=== PATIENT | male | born 1940 | race Caucasian/White ===

== ENCOUNTER 2020-09-13 20:09 | Inpatient (IN) | payer OTHER, SELFPAY ==
[~2020-09-13] VITALS: Ht 167.6 cm; Wt 62.7 kg
[2020-09-13 20:00] VITALS: BP_SYST 117
[~2020-09-13 20:09] MED LIST: ACET325T53 PO; ASCO500T20 PO; ASPI-1155 PO; FURO80TA3 PO; INSU100V11 SQ; LEVO500T89 PO; METO25TA3 PO; MULT-1117 PO; POTA8CAP20 PO; SSNOVOLOG SUBCUT; VALS80TA2 PO; VANC250V IV
[2020-09-13 22:57] VITALS: BP_SYST 117
[2020-09-14 00:42] VITALS: BP_SYST 120
[2020-09-14] MEDS: INSULIN REGULAR, HUMAN 100 UNITS/ML, 10 ML VIAL (humuLIN R) SUBCUT PRN ×2 (06:41→16:47)
[2020-09-14 06:52] LABS: BASOPHILS % (AUTO) 0.6 % (0.0-2.0); EOSINOPHILS # (AUTO) 0.1 K/uL (0.0-0.4); EOSINOPHILS % (AUTO) 1.6 % (0.0-4.0); HEMATOCRIT 32.1 % (36-54); HEMOGLOBIN 10.5 g/dL (14.0-18.0); LYMPHOCYTES # (AUTO) 0.9 K/uL (1.0-5.5); LYMPHOCYTES % (AUTO) 16.3 % (20.5-51.5); MEAN CORPUSCULAR HEMOGLOBIN 28 pg (27-31); MEAN CORPUSCULAR HGB CONC 33 % (32-36); MEAN CORPUSCULAR VOLUME 85 fL (79.0-98.0); MONOCYTES # (AUTO) 0.5 K/uL (0.0-1.0); MONOCYTES % (AUTO) 9.3 % (1.7-9.3); NEUTROPHILS # (AUTO) 3.9 K/uL (1.8-7.7); NEUTROPHILS % (AUTO) 72.2 % (40.0-70.0); PLATELET COUNT (AUTO) 199 K/uL (130-430); RED BLOOD CELL COUNT(AUTO) 3.77 MIL/uL (4.2-6.2); RED CELL DISTRIBUTION WIDTH 23.2 % (9.0-15.0); WHITE BLOOD COUNT (AUTO) 5.3 K/uL (4.8-10.8)
[2020-09-14 07:21] LABS: ALANINE AMINOTRANSFERASE 31 U/L (12-78); ALBUMIN 2.3 g/dL (3.4-4.8); ANION GAP 10 (5-15); ASPARTATE AMINOTRANSFERASE 49 U/L (10-37); CALCIUM 8.3 mg/dL (8.4-11.0); CHLORIDE 103 mmol/L (98-107); CREATININE 1.31 mg/dL (0.55-1.30); GLUCOSE 248 mg/dL (70-99); POTASSIUM 4.6 mmol/L (3.5-5.1); SODIUM SERUM 138 mmol/L (136-145); THYROID STIMULATING HORMONE 5.38 uIu/mL (0.36-3.74); TOTAL BILIRUBIN 1.4 mg/dL (0.0-1.0); UREA NITROGEN, BLOOD 38 mg/dL (8-21)
[2020-09-14 07:22] LABS: INR 1.2 (0.80-1.20); PROTHROMBIN TIME 12.6 SECS (9.5-12.5)
[2020-09-14 07:55] VITALS: BP_SYST 100
[2020-09-14] MEDS ORDERED: ACETAMINOPHEN 650 MG/20.3 ML UDC PO PRN (08:00)
[2020-09-14] MEDS: HYDROcodone/ACETAMIN 5-325 MG TAB (NORCO/ VICODIN) PO PRN (08:15)
[2020-09-14 08:34] LABS: CHOLESTEROL 118 mg/dL (<200); HDL CHOLESTEROL 37 mg/dL (>45); LDL CHOLESTEROL 56 mg/dL (<100); TRIGLYCERIDES 59 mg/dL (30-150)
[2020-09-14 11:40] VITALS: BP_SYST 103
[2020-09-14] MEDS ORDERED: cefTRIAXone 1 GM in D5W 50 ML IV SCH (14:00)
[2020-09-14] MEDS: cefTRIAXone 1 GM in D5W 50 ML IV SCH (14:28)
[2020-09-14] MEDS ORDERED: BALSAM PERU/CASTOR OIL 60 GM OINT...G. TP ONE (14:30)
[2020-09-14 15:29] VITALS: BP_SYST 109
[2020-09-14 20:00] VITALS: BP_SYST 100
[2020-09-14] MEDS: CLOTRIMAZOLE/BETAMETHASONE 45 GM TOPICAL CREAM TP SCH (21:54)
[2020-09-15 00:06] VITALS: BP_SYST 104
[2020-09-15 07:16] LABS: BASOPHILS # (AUTO) 0.1 K/uL (0.0-0.2); BASOPHILS % (AUTO) 0.9 % (0.0-2.0); EOSINOPHILS # (AUTO) 0.1 K/uL (0.0-0.4); HEMATOCRIT 34.5 % (36-54); LYMPHOCYTES # (AUTO) 1.4 K/uL (1.0-5.5); LYMPHOCYTES % (AUTO) 24.2 % (20.5-51.5); MEAN CORPUSCULAR HEMOGLOBIN 27 pg (27-31); MEAN CORPUSCULAR HGB CONC 32 % (32-36); MEAN CORPUSCULAR VOLUME 86 fL (79.0-98.0); MONOCYTES # (AUTO) 0.6 K/uL (0.0-1.0); MONOCYTES % (AUTO) 10.6 % (1.7-9.3); NEUTROPHILS # (AUTO) 3.7 K/uL (1.8-7.7); NEUTROPHILS % (AUTO) 63.3 % (40.0-70.0); PLATELET COUNT (AUTO) 206 K/uL (130-430); RED CELL DISTRIBUTION WIDTH 23.3 % (9.0-15.0); WHITE BLOOD COUNT (AUTO) 5.8 K/uL (4.8-10.8)
[2020-09-15 07:37] VITALS: BP_SYST 115
[2020-09-15 07:45] LABS: ANION GAP 12 (5-15); CALCIUM 8.7 mg/dL (8.4-11.0); CHLORIDE 103 mmol/L (98-107); CREATININE 1.44 mg/dL (0.55-1.30); GLUCOSE 119 mg/dL (70-99); POTASSIUM 5.2 mmol/L (3.5-5.1); SODIUM SERUM 138 mmol/L (136-145); UREA NITROGEN, BLOOD 41 mg/dL (8-21)
[2020-09-15] MEDS: METOPROLOL SUCCINATE 25 MG TAB.SR.24H (TOPROL XL) PO SCH (09:00)
[2020-09-15] MEDS: LOSARTAN POTASSIUM 25 MG TABLET PO SCH (09:00)
[2020-09-15 09:05] VITALS: BP_SYST 106
[2020-09-15] MEDS: ASPIRIN 81 MG TAB.CHEW PO SCH (09:06)
[2020-09-15] MEDS: ASCORBIC ACID 500 MG TABLET PO SCH (09:07)
[2020-09-15] MEDS: MULTIVITAMINS TAB 1 TABLET PO SCH (09:07)
[2020-09-15] MEDS: HYDROcodone/ACETAMIN 5-325 MG TAB (NORCO/ VICODIN) PO PRN (09:07)
[2020-09-15] MEDS: CLOTRIMAZOLE/BETAMETHASONE 45 GM TOPICAL CREAM TP SCH ×2 (09:08→20:34)
[2020-09-15] MEDS: BALSAM PERU/CASTOR OIL 60 GM OINT...G. TP SCH (09:17)
[2020-09-15] MEDS: FUROSEMIDE 80 MG TABLET PO SCH (11:13)
[2020-09-15] MEDS: INSULIN REGULAR, HUMAN 100 UNITS/ML, 10 ML VIAL (humuLIN R) SUBCUT PRN ×2 (11:17→20:37)
[2020-09-15 11:42] VITALS: BP_SYST 119
[2020-09-15] MEDS: cefTRIAXone 1 GM in D5W 50 ML IV SCH (13:22)
[2020-09-15] MEDS ORDERED: ACETAMINOPHEN 325 MG TABLET PO SCH (13:45)
[2020-09-15 15:52] VITALS: BP_SYST 100
[2020-09-15] MEDS: MUPIROCIN 2% TOPICAL OINTMENT 22 GM NS SCH (20:34)
[2020-09-16 00:21] VITALS: BP_SYST 128
[2020-09-16] MEDS: INSULIN REGULAR, HUMAN 100 UNITS/ML, 10 ML VIAL (humuLIN R) SUBCUT PRN ×3 (06:28→21:16)
[2020-09-16] MEDS ORDERED: levoFLOXacin 500 MG TABLET PO SCH (09:00)
[2020-09-16 09:08] VITALS: BP_SYST 120
[2020-09-16] MEDS: FUROSEMIDE 80 MG TABLET PO SCH (09:14)
[2020-09-16] MEDS: LOSARTAN POTASSIUM 25 MG TABLET PO SCH (09:14)
[2020-09-16] MEDS: ASPIRIN 81 MG TAB.CHEW PO SCH (09:14)
[2020-09-16] MEDS: METOPROLOL SUCCINATE 25 MG TAB.SR.24H (TOPROL XL) PO SCH (09:15)
[2020-09-16] MEDS: ASCORBIC ACID 500 MG TABLET PO SCH (09:15)
[2020-09-16] MEDS: MUPIROCIN 2% TOPICAL OINTMENT 22 GM NS SCH ×2 (09:16→21:13)
[2020-09-16] MEDS: MULTIVITAMINS TAB 1 TABLET PO SCH (09:16)
[2020-09-16] MEDS: BALSAM PERU/CASTOR OIL 60 GM OINT...G. TP SCH (09:17)
[2020-09-16] MEDS: CLOTRIMAZOLE/BETAMETHASONE 45 GM TOPICAL CREAM TP SCH ×2 (09:17→21:13)
[2020-09-16 12:00] VITALS: BP_SYST 124
[2020-09-16] MEDS: cefTRIAXone 1 GM in D5W 50 ML IV SCH (13:32)
[2020-09-16 16:27] VITALS: BP_SYST 121
[2020-09-16 20:45] VITALS: BP_SYST 122
[2020-09-17 00:48] VITALS: BP_SYST 120
[2020-09-17] MEDS: HYDROcodone/ACETAMIN 10-325 MG TAB PO PRN (06:16)
[2020-09-17 08:06] VITALS: BP_SYST 118
[2020-09-17] MEDS: ASPIRIN 81 MG TAB.CHEW PO SCH (08:20)
[2020-09-17] MEDS: MULTIVITAMINS TAB 1 TABLET PO SCH (08:21)
[2020-09-17] MEDS: ASCORBIC ACID 500 MG TABLET PO SCH (08:21)
[2020-09-17] MEDS: METOPROLOL SUCCINATE 25 MG TAB.SR.24H (TOPROL XL) PO SCH (08:21)
[2020-09-17] MEDS: FUROSEMIDE 80 MG TABLET PO SCH (08:21)
[2020-09-17] MEDS: LOSARTAN POTASSIUM 25 MG TABLET PO SCH (08:22)
[2020-09-17] MEDS: CLOTRIMAZOLE/BETAMETHASONE 45 GM TOPICAL CREAM TP SCH ×2 (08:24→20:04)
[2020-09-17] MEDS: MUPIROCIN 2% TOPICAL OINTMENT 22 GM NS SCH ×2 (08:24→20:04)
[2020-09-17] MEDS: BALSAM PERU/CASTOR OIL 60 GM OINT...G. TP SCH (08:24)
[2020-09-17 11:34] VITALS: BP_SYST 107
[2020-09-17] MEDS: INSULIN REGULAR, HUMAN 100 UNITS/ML, 10 ML VIAL (humuLIN R) SUBCUT PRN ×3 (11:42→20:06)
[2020-09-17] MEDS: cefTRIAXone 1 GM in D5W 50 ML IV SCH (14:01)
[2020-09-17 19:00] VITALS: BP_SYST 112
[2020-09-17 20:00] VITALS: BP_SYST 112
[2020-09-18 02:41] VITALS: BP_SYST 116
[2020-09-18] MEDS: INSULIN REGULAR, HUMAN 100 UNITS/ML, 10 ML VIAL (humuLIN R) SUBCUT PRN ×4 (05:36→21:22)
[2020-09-18 08:00] VITALS: BP_SYST 132
[2020-09-18] MEDS ORDERED: MORPHINE 2 MG/ML INJ. SYRINGE IVP PRN (08:00)
[2020-09-18] MEDS ORDERED: MORPHINE 2 MG/ML INJ. SYRINGE ONE (08:08)
[2020-09-18] MEDS: MULTIVITAMINS TAB 1 TABLET PO SCH (09:56)
[2020-09-18] MEDS: ASCORBIC ACID 500 MG TABLET PO SCH (09:56)
[2020-09-18] MEDS: LOSARTAN POTASSIUM 25 MG TABLET PO SCH (09:57)
[2020-09-18] MEDS: FUROSEMIDE 80 MG TABLET PO SCH (09:57)
[2020-09-18] MEDS: ASPIRIN 81 MG TAB.CHEW PO SCH (09:57)
[2020-09-18] MEDS: METOPROLOL SUCCINATE 25 MG TAB.SR.24H (TOPROL XL) PO SCH (09:58)
[2020-09-18] MEDS: CLOTRIMAZOLE/BETAMETHASONE 45 GM TOPICAL CREAM TP SCH ×2 (09:58→21:19)
[2020-09-18] MEDS: BALSAM PERU/CASTOR OIL 60 GM OINT...G. TP SCH (09:59)
[2020-09-18] MEDS: MUPIROCIN 2% TOPICAL OINTMENT 22 GM NS SCH ×2 (10:10→21:20)
[2020-09-18 12:00] VITALS: BP_SYST 107
[2020-09-18] MEDS: cefTRIAXone 1 GM in D5W 50 ML IV SCH (14:07)
[2020-09-18 16:00] VITALS: BP_SYST 114
[2020-09-19] MEDS: HYDROcodone/ACETAMIN 10-325 MG TAB PO PRN (01:57)
[2020-09-19] MEDS: INSULIN REGULAR, HUMAN 100 UNITS/ML, 10 ML VIAL (humuLIN R) SUBCUT PRN ×2 (05:30→11:44)
[2020-09-19 06:41] LABS: BASOPHILS % (AUTO) 0.4 % (0.0-2.0); EOSINOPHILS # (AUTO) 0.1 K/uL (0.0-0.4); HEMATOCRIT 36.9 % (36-54); HEMOGLOBIN 11.8 g/dL (14.0-18.0); LYMPHOCYTES # (AUTO) 0.8 K/uL (1.0-5.5); LYMPHOCYTES % (AUTO) 15.1 % (20.5-51.5); MEAN CORPUSCULAR HEMOGLOBIN 28 pg (27-31); MEAN CORPUSCULAR HGB CONC 32 % (32-36); MEAN CORPUSCULAR VOLUME 86 fL (79.0-98.0); MONOCYTES # (AUTO) 0.5 K/uL (0.0-1.0); MONOCYTES % (AUTO) 9.2 % (1.7-9.3); NEUTROPHILS # (AUTO) 4.1 K/uL (1.8-7.7); NEUTROPHILS % (AUTO) 74.3 % (40.0-70.0); PLATELET COUNT (AUTO) 266 K/uL (130-430); RED BLOOD CELL COUNT(AUTO) 4.29 MIL/uL (4.2-6.2); RED CELL DISTRIBUTION WIDTH 23.4 % (9.0-15.0); WHITE BLOOD COUNT (AUTO) 5.5 K/uL (4.8-10.8)
[2020-09-19 07:52] LABS: ALANINE AMINOTRANSFERASE 21 U/L (12-78); ALBUMIN 2.5 g/dL (3.4-4.8); ANION GAP 8 (5-15); ASPARTATE AMINOTRANSFERASE 31 U/L (10-37); CALCIUM 8.7 mg/dL (8.4-11.0); CHLORIDE 99 mmol/L (98-107); CREATININE 1.29 mg/dL (0.55-1.30); GLUCOSE 274 mg/dL (70-99); POTASSIUM 5.3 mmol/L (3.5-5.1); SODIUM SERUM 135 mmol/L (136-145); TOTAL BILIRUBIN 1.2 mg/dL (0.0-1.0); UREA NITROGEN, BLOOD 45 mg/dL (8-21)
[2020-09-19 08:55] VITALS: BP_SYST 108
[2020-09-19] MEDS: BALSAM PERU/CASTOR OIL 60 GM OINT...G. TP SCH (09:01)
[2020-09-19] MEDS: CLOTRIMAZOLE/BETAMETHASONE 45 GM TOPICAL CREAM TP SCH (09:01)
[2020-09-19] MEDS: ASPIRIN 81 MG TAB.CHEW PO SCH (09:02)
[2020-09-19] MEDS: MUPIROCIN 2% TOPICAL OINTMENT 22 GM NS SCH (09:02)
[2020-09-19] MEDS: LOSARTAN POTASSIUM 25 MG TABLET PO SCH (09:02)
[2020-09-19] MEDS: FUROSEMIDE 80 MG TABLET PO SCH (09:04)
[2020-09-19] MEDS: MULTIVITAMINS TAB 1 TABLET PO SCH (09:04)
[2020-09-19] MEDS: ASCORBIC ACID 500 MG TABLET PO SCH (09:04)
[2020-09-19] MEDS: METOPROLOL SUCCINATE 25 MG TAB.SR.24H (TOPROL XL) PO SCH (09:04)
[2020-09-19 12:16] VITALS: BP_SYST 113
[2020-09-19] MEDS: cefTRIAXone 1 GM in D5W 50 ML IV SCH (14:00)
[2020-09-19 15:51] VITALS: BP_SYST 113
[2020-09-19 16:30] VITALS: BP_SYST 119
== END 2020-09-19 16:25 | DRG 299 ==
LOC: SMU 20:09
PROVIDERS: ADMIT Internal Medicine; ATTEND Internal Medicine
DX: E11.52 Type 2 diabetes mellitus with diabetic peripheral angiopathy with gangrene (principal); E43 Unspecified severe protein-calorie malnutrition; L03.116 Cellulitis of left lower limb; I96 Gangrene, not elsewhere classified; I42.0 Dilated cardiomyopathy; I13.0 Hypertensive heart and chronic kidney disease with heart failure and stage 1 through stage 4 chronic kidney disease, or unspecified chronic kidney disease; I50.40 Unspecified combined systolic (congestive) and diastolic (congestive) heart failure; L03.115 Cellulitis of right lower limb; N18.4 Chronic kidney disease, stage 4 (severe); E11.621 Type 2 diabetes mellitus with foot ulcer; L97.519 Non-pressure chronic ulcer of other part of right foot with unspecified severity; L97.529 Non-pressure chronic ulcer of other part of left foot with unspecified severity; I87.8 Other specified disorders of veins; I27.20 Pulmonary hypertension, unspecified; E78.5 Hyperlipidemia, unspecified; K74.60 Unspecified cirrhosis of liver; B35.6 Tinea cruris; H54.61 Unqualified visual loss, right eye, normal vision left eye; I35.0 Nonrheumatic aortic (valve) stenosis; Z20.822 Contact with and (suspected) exposure to COVID-19; E11.22 Type 2 diabetes mellitus with diabetic chronic kidney disease; Z79.82 Long term (current) use of aspirin; Z79.899 Other long term (current) drug therapy; Z79.4 Long term (current) use of insulin; Z68.22 Body mass index [BMI] 22.0-22.9, adult
CPT/HCPCS: 36415; 71045; 80048; 80053; 80061; 82962; 83880; 84443; 84484; 85025; 85379; 85610-TC; 85730-TC; 87081; 93005; 93923; 93970; 97116-GP; 97163; 97530-GP; J0696; J1815; J2270; J7060